=== PATIENT | male | born 1985 | race American Indian/Alaskan Native ===

== ENCOUNTER 2017-02-27 04:42 | Emergency (ER) | payer SELFPAY ==
--- NOTE | 2017-02-27 05:29 | Emergency Department Report ---
HPI - General Chief Complaint: Extremity Injury, Lower Time Seen by Provider: 02/27/17 05:09 - HPI HPI: Patient is a 31-year-old male presents to ED complaining of lower left leg swelling and pain in the past 5 days. Patient states about a week ago he noticed boil on his leg. Patient states he popped the boil and shortly after that another one of her eyes. Patient states since then his legs become red and swollen over the past week. Patient states 04/14/2017 he got a tattoo on the back of his left leg. He denies any fever states she's had some chills. Patient states has become painful, red and swollen and has become painful to walk on that leg. ED Past Medical Hx - Past Medical History Previous Medical History?: No - Surgical History Past Surgical History?: Yes Additional Surgical History: achiles - Social History Smoking Status: Never Smoker Substance Use Type: None - Medications Home Medications: Home Medications Medication Instructions Recorded Confirmed Last Taken Type Clindamycin [Clindamycin CAP] 300 mg PO Q8H #21 cap 02/27/17 Unknown Rx Ibuprofen [Motrin] 800 mg PO Q8HR PRN #30 tablet 02/27/17 Unknown Rx ED Review of Systems ROS: Stated complaint: LF LEG PAIN Other details as noted in HPI Constitutional: denies: chills, fever Eyes: denies: eye pain, eye discharge, vision change ENT: denies: ear pain, throat pain Respiratory: denies: cough, shortness of breath, wheezing Cardiovascular: denies: chest pain, palpitations Endocrine: no symptoms reported Gastrointestinal: denies: abdominal pain, nausea, diarrhea Genitourinary: denies: urgency, dysuria Musculoskeletal: denies: back pain, joint swelling, arthralgia Skin: denies: rash, lesions Neurological: denies: headache, weakness, paresthesias Psychiatric: denies: anxiety, depression Hematological/Lymphatic: denies: easy bleeding, easy bruising Physical Exam - Physical Exam Vital Signs: Vital Signs 02/27/17 04:47 Temperature 100.1 F H Pulse Rate 95 H Respiratory 18 Rate Blood Pressure 137/89 O2 Sat by Pulse 96 Oximetry Physical Exam: GENERAL: Alert and oriented x3, no apparent distress, Normal Gait, atraumatic. HEAD: Head is normocephalic and a-traumatic. LUNGS: Symetrical with respiration, No wheezing, no rales or crackles, CTAB. HEART: S1, S2 present, regular rate and rhythm without murmur, no rubs, no gallops. EXTREMITIES/MUSCULOSKELETAL: No cyanosis, clubbing, rash, lesions or edema. Full ROM bilaterally. LE Pulses 2+ bilaterally. SKIN: Warm and dry, left lower leg erythematous, swollen 38 mm in diameter lesion seen surrounded by erythema. Tattoo seen around erythema and leg,. Leg is warm to touch and red. No lesions, No ulceration or induration present. ED Course Vital Signs 02/27/17 04:47 Temperature 100.1 F H Pulse Rate 95 H Respiratory 18 Rate Blood Pressure 137/89 O2 Sat by Pulse 96 Oximetry ED Medical Decision Making - Lab Data Result diagrams: 02/27/17 05:37 - Radiology Data Radiology results: report reviewed, image reviewed FINAL REPORT PROCEDURE: XR TIBIA FIBULA 2V LT TECHNIQUE: LEFT tibia and fibula radiographs, AP and lateral views. CPT 66341 HISTORY: leg pain/swelling COMPARISON: No prior studies are available for comparison. FINDINGS: Fracture (s) and/or Dislocation(s): None . Joint space(s): Normal . Soft tissues: Moderate diffuse soft tissue swelling. Bone mineralization: Normal . Foreign bodies: None . IMPRESSION: No evidence of acute fracture or dislocation. There is moderate diffuse soft tissue swelling. Transcribed By: [facility] Dictated By: ZEB ARANGO MD Electronically Authenticated By: ZEB ARANGO MD Signed Date/Time: 02/27/17 0610 - Medical Decision Making 31-year-old male presents ET January 22 cellulitis of the leg ED course: CBC with auto differential ordered. 1 L of normal saline, 1 g Rocephin, 15 mg of Toradol ordered. CBC shows no signs of infection white count normal Discussed findings with patient. Discussed the patient will follow up with primary care physician in 3-5 days for wound check. Discussed the take antibiotics as prescribed. Vital signs are much better than initial. Is in no distress he's alert and oriented 3 understands instructions given Critical care attestation.: If time is entered above; I have spent that time in minutes in the direct care of this critically ill patient, excluding procedure time. ED Disposition Clinical Impression: Cellulitis of lower leg Disposition: [id number] TO HOME OR SELFCARE Is pt being admited?: No Does the pt Need Aspirin: No Condition: Stable Instructions: Cellulitis (ED), Acute Wound Care (ED) Additional Instructions: Follow-up return to the ED or follow-up which a primary care physician in 2-3 days for wound check Return to ED if any new symptoms arise Prescriptions: Clindamycin [Clindamycin CAP] 300 mg PO Q8H #21 cap Ibuprofen [Motrin] 800 mg PO Q8HR PRN #30 tablet PRN Reason: Pain Referrals: PRIMARY CARE, [Primary Care Provider] - 3-5 Days [facility] [Outside] - 3-5 Days [facility] [Outside] - 3-5 Days [facility] [Outside] - 3-5 Days [facility] [Outside] - 3-5 Days Forms: Work/School Release Form Time of Disposition: 06:35
[2017-02-27] MEDS ORDERED: XYLOCAINE 1% MPF 5 mL INFILTRATI ONE (05:32)
[2017-02-27] MEDS ORDERED: ROCEPHIN/NS 1 GM/50 ML 1 GM/50 ML BAG IV ONE (05:34)
[2017-02-27] MEDS ORDERED: NACL 0.9% 1000 ML 1,000 ML IV ONE (05:35)
[2017-02-27] MEDS ORDERED: TORADOL IV ONE ×2 (05:35→05:59)
[2017-02-27 06:06] LABS: Basophils % (Auto) 0.2 % (0.0-1.8); Eosinophils % (Auto) 0.7 % (0.0-4.3); Hematocrit 41.8 % (35.5-45.6); Hemoglobin 13.9 gm/dl (11.8-15.2); Mean Corpuscular HGB Conc 33 % (32-34); Mean Corpuscular Hemoglobin 32 pg (28-32); Mean Corpuscular Volume 97 fl (84-94); Platelet Count 314 K/mm3 (140-440); Red Blood Count 4.33 M/mm3 (3.65-5.03); Red Cell Distribution Width 12.5 % (13.2-15.2); White Blood Count 10.4 K/mm3 (4.5-11.0)
--- NOTE | 2017-02-27 06:14 | XRay Report ---
FINAL REPORT PROCEDURE: XR TIBIA FIBULA 2V LT TECHNIQUE: LEFT tibia and fibula radiographs, AP and lateral views. CPT 94639 HISTORY: leg pain/swelling COMPARISON: No prior studies are available for comparison. FINDINGS: Fracture (s) and/or Dislocation(s): None . Joint space(s): Normal . Soft tissues: Moderate diffuse soft tissue swelling. Bone mineralization: Normal . Foreign bodies: None . IMPRESSION: No evidence of acute fracture or dislocation. There is moderate diffuse soft tissue swelling.
[2017-02-27 06:49] VITALS: BP 133/89
== END 2017-02-27 06:51 | disposition home or self-care (01) ==
LOC: ED 04:42
DX: L03.116 Cellulitis of left lower limb (principal)
CPT/HCPCS: 36415; 73590; 85025; 96365; 96375; 99284; J0696; J1885; J7030; 96361